=== PATIENT | male | born 1995 | race Caucasian/White ===

== ENCOUNTER 2024-04-22 01:10 | Emergency (ER) | payer OTHER ==
[~2024-04-22] VITALS: Ht 172.7 cm; Wt 54.4 kg
[2024-04-22 01:56] LABS: BASOPHILS # (AUTO) 0.1 K/UL (0.0-0.2); BASOPHILS % (AUTO) 0.8 % (0.0-2.0); EOSINOPHILS # (AUTO) 0.1 K/uL (0.0-0.7); EOSINOPHILS % (AUTO) 1.3 % (0.0-7.0); HEMATOCRIT 37.7 % (36.7-47.1); HEMOGLOBIN 12.8 g/dL (12.5-16.3); LYMPHOCYTES # (AUTO) 2.3 K/uL (0.8-4.8); LYMPHOCYTES % (AUTO) 23.6 % (20.5-51.5); MEAN CORPUSCULAR HEMOGLOBIN 29.6 uug (23.8-33.4); MEAN CORPUSCULAR HGB CONC 34 g/dL (32.5-36.3); MEAN CORPUSCULAR VOLUME 87.4 fL (73.0-96.2); MONOCYTES # (AUTO) 0.7 K/uL (0.1-1.30); MONOCYTES % (AUTO) 7.5 % (0.0-11.0); NEUTROPHILS # (AUTO) 6.4 K/uL (1.8-8.9); NEUTROPHILS % (AUTO) 66.8 % (38.5-71.5); PLATELET COUNT (AUTO) 236 K/uL (152-348); RED BLOOD CELL COUNT(AUTO) 4.32 MIL/uL (4.06-5.63); RED CELL DISTRIBUTION WIDTH 13.7 % (12.1-16.2); WHITE BLOOD COUNT (AUTO) 9.6 K/uL (3.6-10.2)
[2024-04-22 02:13] LABS: CALCIUM 8.9 mg/dL (8.5-10.1)
[2024-04-22 02:18] LABS: DIFFERENTIAL COMMENT 1
[2024-04-22 02:19] LABS: ALBUMIN 4.5 g/dL (3.4-5.0); BILIRUBIN,DIRECT 0.1 mg/dL (0.0-0.2); BILIRUBIN,TOTAL 0.5 mg/dL (0.2-1.0); TOTAL PROTEIN, SERUM 8.3 g/dL (6.4-8.2)
[2024-04-22 03:04] LABS: *BLOOD, URINE NEGATIVE (NEGATIVE); *CLARITY,URINE CLEAR (CLEAR); *COLOR,URINE YELLOW (YELLOW); *KETONES,URINE TRACE (NEGATIVE); *PROTEIN,URINE 1+ (NEGATIVE); *UROBILINOGEN,URINE 0.2 E.U./dl (NORMAL); LEUKOCYTE ESTERASE ,URINE NEGATIVE (NEGATIVE); NITRITE, URINE NEGATIVE (NEGATIVE); PH,URINE 5.5 (5.0-8.0); UGLUCOSE NEGATIVE (NEGATIVE)
[2024-04-22 03:14] LABS: *BILIRUBIN,URIN 1+ (NEGATIVE)
[2024-04-22 03:27] LABS: *AMPHETAMINE, URINE POSITIVE (NEGATIVE); *BARBITURATE, URINE NEGATIVE (NEGATIVE); *BENZODIAZEPINE, URINE NEGATIVE (NEGATIVE); *CANNABINOID, URINE NEGATIVE (NEGATIVE); *COCCAINE, URINE NEGATIVE (NEGATIVE); *OPIATE, URINE NEGATIVE (NEGATIVE); *PHENCYCLIDINE SCREEN,URINE NEGATIVE (NEGATIVE)
[2024-04-22 04:09] LABS: FENTANYL, URINE POSITIVE (NEGATIVE)
[2024-04-22] MEDS ORDERED: LACTULOSE 20 G/30 ML LIQUID UDC ONE (04:13)
[2024-04-22] MEDS ORDERED: LACT10SO58 PO (04:14)
[2024-04-22] MEDS: LACTULOSE 20 G/30 ML LIQUID UDC PO ONE (04:36)
[2024-04-22 04:37] VITALS: BP 125/89; TEMP 98.6; O2SAT 99
== END 2024-04-22 04:38 | disposition home or self-care (01) ==
LOC: ER 01:19
DX: K59.00 Constipation, unspecified (principal); F11.10 Opioid abuse, uncomplicated; Z79.899 Other long term (current) drug therapy; Z60.2 Problems related to living alone
CPT/HCPCS: 36415; 83690; 85025; A4606; A4663

== ENCOUNTER 2025-08-20 03:34 | Emergency (ER) | payer OTHER ==
[~2025-08-20] VITALS: Ht 175.3 cm; Wt 56.7 kg
[2025-08-20 03:34] VITALS: BP 137/89
[~2025-08-20 03:34] MED LIST: LACT10SO58 PO
[2025-08-20 04:14] VITALS: BP 133/88; O2SAT 99
== END 2025-08-20 04:12 | disposition home or self-care (01) ==
LOC: ER 03:36
DX: S06.0X0A Concussion without loss of consciousness, initial encounter (principal); R11.0 Nausea; F17.290 Nicotine dependence, other tobacco product, uncomplicated; F15.10 Other stimulant abuse, uncomplicated; W18.39XA Other fall on same level, initial encounter; Y93.89 Activity, other specified; Y92.89 Other specified places as the place of occurrence of the external cause; Y99.8 Other external cause status
CPT/HCPCS: A4606; A4663